=== PATIENT | female | born 1970 | race Two or more races ===

== ENCOUNTER → 2019-01-31 | Outpatient (CLI) | payer MEDICAID ==
[2019-01-31 17:43] LABS: Basophils % (A) 1 %; Eosinophils # (A) 0.2 k/uL (0-0.7); Eosinophils % (A) 2 %; HCT 40.1 % (34.0-46.0); HGB 13.2 gm/dL (11.4-16.0); Lymphocytes # (A) 2.3 k/uL (1.0-4.8); Lymphocytes % (A) 28 %; MCH 29.9 pg (25.0-35.0); MCHC 32.9 g/dL (31.0-37.0); MCV 90.8 fL (80.0-100.0); Mean Platelet Volume 8.3; Monocytes # (A) 0.5 k/uL (0-1.0); Monocytes % (A) 6 %; Neutrophils # (A) 5.2 k/uL (1.3-7.7); Neutrophils % (A) 61 %; Platelet Count 256 k/uL (150-450); RBC 4.41 m/uL (3.80-5.40); RDW 12.9 % (11.5-15.5); WBC 8.4 k/uL (3.8-10.6)
== END | disposition home or self-care (01) ==
LOC: LABWHC1 17:07
PROVIDERS: ATTEND Obstetrics & Gynecology
DX: Z01.812 Encounter for preprocedural laboratory examination (principal)
CPT/HCPCS: 36415; 85025

== ENCOUNTER 2019-02-02 06:22 | Day surgery (SDC) | payer MEDICAID ==
[2019-01-31 10:57] VITALS: BMI 21.2
--- NOTE | 2019-02-01 20:26 | P.HPOB ---
History of Present Illness H&P Date: 02/01/19 Chief Complaint: Low-grade squamous intraepithelial lesion of the cervix This is a 48-year-old female 2 para 2 who presents for loop electrocautery excision procedure with colposcopy due to low-grade screen was intraepithelial lesion of the cervix with positive high risk HPV. Her Pap smear on December 072018 showed low-grade squamous intraepithelial lesion of the cervix with positive high risk HPV. She underwent colposcopy on 01/11/2019 that showed endocervical curettings with focal atypia consistent with low-grade/HPV change. Both the biopsies at 7 and 11:00 positions also showed low-grade squamous epithelial lesion of the cervix with HPV associated change. She was offered cryocautery versus loop electrocautery excision procedure. She wishes to proceed with the above noted procedure. Obstetrical history: . History of 2 vaginal deliveries. 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 She has had a tubal ligation and her partner has had a vasectomy. Social history: She is . 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 Review of Systems Constitutional: Reports fatigue, Denies chills, Denies fever Eyes: bilateral blurred vision, denies pain Ears, nose, mouth and throat: Denies headache, Denies sore throat Cardiovascular: Denies chest pain, Denies shortness of breath Respiratory: Denies cough Gastrointestinal: Denies abdominal pain, Denies diarrhea, Denies nausea, Denies vomiting Genitourinary: Denies dysuria, Denies hematuria Menstruation: Reports amenorrhea Musculoskeletal: Reports low back pain Integumentary: Denies pruritus, Denies rash Neurological: Denies numbness, Denies weakness Psychiatric: Reports anxiety, Reports depression Past Medical History Past Medical History: No Reported History Additional Past Medical History / Comment(s): abnormal pap smear History of Any Multi-Drug Resistant Organisms: None Reported Past Surgical History: Tubal Ligation, Uterine Ablation Additional Past Surgical History / Comment(s): bladder lift Past Anesthesia/Blood Transfusion Reactions: No Reported Reaction Additional Past Anesthesia/Blood Transfusion Reaction / Comment(s): no hx blood transfusion Past Psychological History: Anxiety, Depression Smoking Status: Never smoker Past Alcohol Use History: Occasional Past Drug Use History: None Reported - Past Family History Mother Family Medical History: No Reported History Father Family Medical History: Cancer Additional Family Medical History / Comment(s): esophageal Medications and Allergies Home Medications Medication Instructions Recorded Confirmed Type No Known Home Medications 01/31/19 01/31/19 History Allergies Allergy/AdvReac Type Severity Reaction Status Date / Time diazepam [From Valium] AdvReac uncontrollable Verified 01/31/19 10:51 laughter Exam Osteopathic Statement: *. No significant issues noted on an osteopathic structural exam other than those noted in the History and Physical/Consult. HEENT: Within normal limits Heart: Rate and rhythm Lungs: Clear to auscultation bilaterally Abdomen: Soft, nontender Pelvic exam: Uterus is anteverted, nontender, with no adnexal masses or tenderness noted. Extremities: Negative Homans Assessment and Plan (1) Low grade squamous intraepithelial lesion (LGSIL) on cervical Pap smear Status: Acute Code(s): R87.612 - LOW GRADE INTREPITH LESION CYTO SMR CRVX (LGSIL) SNOMED Code(s): 07909051285850 Plan: Proceed with colposcopy with loop electrocautery excision procedure. I have discussed the risks, benefits, and alternative therapies for the above- mentioned procedure and for both sedation/anesthesia as well as necessary blood products administration, if indicated, as they pertain to this patient. The patient has indicated her understanding and acceptance of the risks and procedures discussed.
[~2019-02-02 06:22] MED LIST: DEXAMETHASONE SOD PHOSPHATE 10 MG/ML 1 ML VIAL IV ONE; HYDROmorphone 0.5 MG/0.5 ML SYRINGE IVP PRN; LACTATED RINGERS 1,000 ML IV SCH; MIDAZOLAM 2 MG/2 ML VIAL IV PRN; ONDANSETRON 4 MG/2 ML VIAL IVP ONE; Pre Op ABX Message 1 EACH MISC MISCELLANE ONE
[2019-02-02 06:44] VITALS: RESP 16
[2019-02-02] MEDS ORDERED: LIDOCAINE 1% 20 ML VIAL (10MG/ML) FOR IV START INTRADERMA ONE (06:56)
[2019-02-02] MEDS ORDERED: FERRIC SUBSULFATE (MONSELS) JAR TOPICAL ONE ×2 (07:18→07:45)
[2019-02-02] MEDS ORDERED: BUPIVACAINE (PF) 0.5% 30 ML VIAL SQ ONE ×3 (07:19→07:45)
[2019-02-02] MEDS ORDERED: LIDOCAINE 1%-EPI 1:100,000 20 ML VIAL SQ ONE ×3 (07:19→07:45)
[2019-02-02] MEDS ORDERED: ACETIC ACID 15 DROPS/ML DROPS MISCELLANE ONE ×2 (07:19→07:45)
[2019-02-02] MEDS ORDERED: IODINE/POTASS IOD (LUGOLS) 8 ML BTL TOPICAL ONE ×3 (07:20→07:50)
[2019-02-02] MEDS ORDERED: LIDOCAINE 1% INJ 10MG/ML (20 ML MDV) ONE (07:24)
[2019-02-02] MEDS ORDERED: KETOROLAC 30 MG/ML 1 ML VIAL ONE (07:24)
[2019-02-02] MEDS ORDERED: PROPOFOL 10 MG/ML 20 ML VIAL IV ONE (07:24)
[2019-02-02] MEDS ORDERED: fentaNYL (PF) 50 MCG/ML 2 ML AMP ONE (07:24)
--- NOTE | 2019-02-02 08:06 | P.OP ---
Date of Procedure: 02/02/19 Preoperative Diagnosis: Low-grade squamous intraepithelial lesion of the cervix Postoperative Diagnosis: Same Procedure(s) Performed: Colposcopy with loop electrocautery excision procedure Anesthesia: other (Mask general) Surgeon: Mary Lawrence Estimated Blood Loss (ml): 10 Pathology: other (#1-ectocervix with 12:00 with a black stitch and 6:00 marked with a stitch, a separate piece-12:00 marked with a white stitch, other separate piece-2:00 marked with a black stitch; #2-endocervix) Condition: stable Disposition: same day Indications for Procedure: This is a 48-year-old female 2 para 2 who presents for loop electrocautery excision procedure with colposcopy due to low-grade screen was intraepithelial lesion of the cervix with positive high risk HPV. Her Pap smear on December 072018 showed low-grade squamous intraepithelial lesion of the cervix with positive high risk HPV. She underwent colposcopy on 01/11/2019 that showed endocervical curettings with focal atypia consistent with low-grade/HPV change. Both the biopsies at 7 and 11:00 positions also showed low-grade squamous epithelial lesion of the cervix with HPV associated change. She was offered cryocautery versus loop electrocautery excision procedure. She wishes to proceed with the above noted procedure. Operative Findings: Upon colposcopy, no specific findings were seen with acetic acid however there was a larger Lugol white area extending from the 12 to 3:00 border. No mosaicism was visualized. Description of Procedure: The patient is taken to the operating room where she is placed in the dorsal lithotomy position. She is prepped and draped in the normal sterile fashion. Her bladder is drained with a catheter and this is removed. A coated bivalve speculum was placed in the patient's vagina. Colposcopy is then performed using a blue light. The cervix is swabbed with 3% acetic acid areaspecific abnormalities are visualized. Next the cervix is swabbed with Lugol solution. The transition zone is seen entirely there is a Lugol white area that extends from approximately the 12 to 3:00 border fairly far out on the cervix. Next the cervix is circumferentially injected with a 50-50 mixture of 1% lidocaine with epinephrine and half percent Marcaine. Approximately 7 mL were injected circumferentially using a spinal needle around the cervix. Next a large loop was used using 35 W of cutting power to swipe from left to right removing the transition zone on the lower portion of the cervix. This piece was labeled at 6:00 with a white stitch and 12:00 with a black stitch. Next the large loop was then used to swipe from left to right removing part of the extension of the Lugol solution on the upper part of the cervix. This piece is labeled at the 12:00 with a white stitch. Another portion was removed swiping from right to left on the upper portion of the cervix. This piece was labeled at the 2 o'clock position with a black stitch. Next the endocervix was removed using a small loop. This was sent in a separate container. Next ball-tipped cautery was used to cauterize the bed left behind. Excellent hemostasis was noted. The bed left behind was then swabbed with Monsel solution for hemostasis. Excellent hemostasis is noted. All instruments are removed from the vagina. All sponge and needle counts are correct. The patient is then taken to recovery room in stable condition.
[2019-02-02 08:18] VITALS: TEMP 97
[2019-02-02] MEDS ORDERED: LACTATED RINGERS 1,000 ML IV ONE (08:52)
[2019-02-02 09:05] VITALS: BP 116/77; PULSE 63
== END 2019-02-02 09:24 | disposition home or self-care (01) ==
LOC: OR 06:22
PROVIDERS: ATTEND Obstetrics & Gynecology
DX: R87.612 Low grade squamous intraepithelial lesion on cytologic smear of cervix (LGSIL) (principal); F41.9 Anxiety disorder, unspecified; F32.9 Major depressive disorder, single episode, unspecified; M54.5 Low back pain; Z98.51 Tubal ligation status; Z88.8 Allergy status to other drugs, medicaments and biological substances; Z80.0 Family history of malignant neoplasm of digestive organs
CPT/HCPCS: 57461; 88305; 88307; 81025; J1100; J2405; J2001; J3010; J1885; J2704